=== PATIENT | female | born 1995 | race Caucasian/White ===

== ENCOUNTER 2018-12-03 03:56 | Emergency (ER) | payer BC, OTHER ==
[~2018-12-03] VITALS: Ht 167.6 cm; Wt 60.7 kg
[2018-12-03 04:06] VITALS: Ht 167.6 cm; Wt 60.7 kg
[2018-12-03] MEDS ORDERED: KETOROLAC 30 MG INJ IV STA (04:26)
[2018-12-03] MEDS ORDERED: FAMOTIDINE 20 MG INJ IV STA (04:26)
[2018-12-03] MEDS ORDERED: DOCU-144 PO (05:49)
[2018-12-03] MEDS ORDERED: TRAM50TA2 PO (05:49)
--- NOTE | 2018-12-03 05:54 | ERD ---
ER Documentation Chief Complaint Chief Complaint abdominal/back pain since last night. also c/o rectal bleed, blood in stool HPI 23-year-old female presents with mid abdominal pain since yesterday. She also has intermittent bright red blood per rectum over the last 2 weeks. She recently had a D&C or termination of 3 weeks ago. She denies active bleeding. She denies fevers, vomiting, lower abdominal pain. She has diagnosed herself with irritable bowel syndrome. She has not had a colonoscopy or additional studies. ROS All systems reviewed and are negative except as per history of present illness. Medications Home Meds Active Scripts Docusate Sodium* (Colace*) 100 Mg Capsule, 100 MG PO BID, #60 CAP Prov:SHAINA ISABEL MD 12/03/18 Tramadol HCl (Tramadol HCl) 50 Mg Tablet, 50 MG PO Q4 PRN for PAIN, #15 TAB Prov:SHAINA ISABEL MD 12/03/18 Allergies Allergies: Coded Allergies: No Known Drug Allergies (Verified Allergy, Unknown, 12/03/18) PMhx/Soc Hx Miscellaneous Medical Probl: Yes (IBS, ) Hx Alcohol Use: Yes (SOCIALLY ) Hx Substance Use: Yes (MARIJUANA OCCASIONALLY ) Hx Tobacco Use: No Smoking Status: Former smoker FmHx Family History: No diabetes, No coronary disease, No other Physical Exam Vitals Vital Signs Date Temp Pulse Resp B/P (MAP) Pulse Ox O2 O2 Flow FiO2 Time Delivery Rate 12/03/18 97.6 57 18 106/56 100 04:06 (73) Physical Exam Const: No acute distress Head: Atraumatic Eyes: Normal Conjunctiva ENT: Normal External Ears, Nose and Mouth. Neck: Full range of motion. No meningismus. Resp: Clear to auscultation bilaterally Cardio: Regular rate and rhythm, no murmurs Abd: Soft, mid abdominal tenderness without rebound. Mentation McBurney's point no Rodriguez sign. Non distended. Normal bowel sounds Skin: No petechiae or rashes Back: No midline or flank tenderness Ext: No cyanosis, or edema Neur: Awake and alert Psych: Normal Mood and Affect Result Diagram: 12/03/18 0436 Results 24 hrs Laboratory Tests Test 12/03/18 04:36 12/03/18 04:41 White Blood Count 7.5 10^3/ul Red Blood Count 4.57 10^6/ul Hemoglobin 14.0 g/dl Hematocrit 42.7 % Mean Corpuscular Volume 93.4 fl Mean Corpuscular Hemoglobin 30.6 pg Mean Corpuscular Hemoglobin Concent 32.8 g/dl Red Cell Distribution Width 13.7 % Platelet Count 332 10^3/UL Mean Platelet Volume 9.9 fl Immature Granulocytes % 0.300 % Neutrophils % 35.6 % Lymphocytes % 54.2 % Monocytes % 8.1 % Eosinophils % 1.1 % Basophils % 0.7 % Nucleated Red Blood Cells % 0.0 /100WBC Immature Granulocytes # 0.020 10^3/ul Neutrophils # 2.7 10^3/ul Lymphocytes # 4.1 10^3/ul Monocytes # 0.6 10^3/ul Eosinophils # 0.1 10^3/ul Basophils # 0.1 10^3/ul Nucleated Red Blood Cells # 0.0 10^3/ul Urine Color STRAW Urine Clarity CLEAR Urine pH 6.0 Urine Specific Mustang 1.011 Urine Ketones NEGATIVE mg/dL Urine Nitrite NEGATIVE mg/dL Urine Bilirubin NEGATIVE mg/dL Urine Urobilinogen NEGATIVE mg/dL Urine Leukocyte Esterase NEGATIVE Alan/ul Urine Hemoglobin NEGATIVE mg/dL Urine Glucose NEGATIVE mg/dL Urine Total Protein NEGATIVE mg/dl POC Beta HCG, Qualitative NEGATIVE Current Medications Medications Dose Sig/Lilia Start Time Status Last (Trade) Ordered Route PRN Stop Time Admin Dose Reason Admin Famotidine 20 mg ONCE STAT 12/03/18 DC 12/03/18 (Pepcid Iv) IV 04:26 12/03/18 05:13 04:27 Ketorolac 30 mg ONCE STAT 12/03/18 DC 12/03/18 Tromethamine IV 04:26 12/03/18 05:13 (Toradol) 04:27 Procedures/MDM CBC is normal. Urine negative for acute abnormalities and hCG negative. CMP shows no acute abnormalities as well as lipase. Patient presents with intermittent worsening abdominal pain for the last month with rectal bleed. She denies constipation. CT abdomen pelvis pending for evaluation of inflammatory bowel disease, colitis or additional causes of presenting complaints. Patient was given Pepcid and Toradol. Case will be signed out to mid-level provider and supervising ER physician. Departure Diagnosis: Primary Impression: Abdominal pain Abdominal location: unspecified location Qualified Codes: R10.9 - Unspecified abdominal pain Condition: Stable Patient Instructions: Abdominal Pain, Rectal Bleed, Stable Referrals: NO PRIMARY,CARE PHYSICIAN (PCP) JIMMY CAMARENA MD Additional Instructions: Recommend follow-up with primary doctor. Recommend colonoscopy for persistent symptoms and bleeding. Recheck otherwise for fevers, vomiting, new worsening symptoms. SHAINA ISABEL MD Dec 03, 2018 05:54
[2018-12-03] MEDS ORDERED: IOHEXOL 300MG/ML 150 ML BTL ONE (06:02)
[2018-12-03] MEDS ORDERED: SOD CHLORIDE 0.9% 100 ML ONE (06:02)
[2018-12-03 08:49] VITALS: BP 104/59; PULSE 65; RESP 16
== END 2018-12-03 08:48 | disposition home or self-care (01) ==
LOC: FTE 03:56
DX: R10.9 Unspecified abdominal pain (principal); Z87.891 Personal history of nicotine dependence
CPT/HCPCS: 36415; 74177; 80053; 81003; 81025; 83690; 84702; 85025; 96374; 96375; 99285; J1885; Q9967